=== PATIENT | male | born 1945 | race Caucasian/White ===

== ENCOUNTER 2018-08-15 08:14 | Day surgery (SDC) | payer MEDICARE, OTHER ==
[~2018-08-15] VITALS: Ht 190.5 cm; Wt 125.0 kg
[~2018-08-15 08:14] MED LIST: AMLO10 PO; ASPI81CH PO; ATOR20 PO; CARV6.25 PO; CHOL10002 PO; DABI150C PO; FENO145 PO; FISH1000 PO; HYDCHL25 PO; LISI20 PO; OMEP20ER PO
== END 2018-08-15 11:30 | disposition home or self-care (01) ==
LOC: MHTC 08:14
DX: I49.5 Sick sinus syndrome (principal); I44.2 Atrioventricular block, complete
CPT/HCPCS: 33228; 99152; 99153; C1785; J0690; J1644; J2250; J3010; J7030; J7040

== ENCOUNTER 2019-03-20 12:42 | Day surgery (SDC) | payer MEDICARE, OTHER ==
[~2019-03-20] VITALS: Ht 190.5 cm; Wt 266.6 kg
[2019-03-20] MEDS ORDERED: METF500 PO (13:27)
== END 2019-03-20 14:10 | disposition home or self-care (01) ==
LOC: ORSCSDS 12:42
PROVIDERS: Surgery
PROC: 0DB78ZX Excision of Stomach, Pylorus, Via Natural or Artificial Opening Endoscopic, Diagnostic (ICD-10-PCS; principal; 2019-03-20 14:15)
PROC: 0DB58ZX Excision of Esophagus, Via Natural or Artificial Opening Endoscopic, Diagnostic (ICD-10-PCS; principal; 2019-03-20 14:15)
PROC: 0DBP8ZX Excision of Rectum, Via Natural or Artificial Opening Endoscopic, Diagnostic (ICD-10-PCS; principal; 2019-03-20 14:15)
DX: Z12.11 Encounter for screening for malignant neoplasm of colon (principal); Z86.010 Personal history of colon polyps; K62.1 Rectal polyp; K57.30 Diverticulosis of large intestine without perforation or abscess without bleeding; K64.8 Other hemorrhoids; Z87.19 Personal history of other diseases of the digestive system; K22.70 Barrett's esophagus without dysplasia; K44.9 Diaphragmatic hernia without obstruction or gangrene; I10 Essential (primary) hypertension; I48.91 Unspecified atrial fibrillation; E78.5 Hyperlipidemia, unspecified; Z79.01 Long term (current) use of anticoagulants; Z95.0 Presence of cardiac pacemaker; Z79.899 Other long term (current) drug therapy; Z87.891 Personal history of nicotine dependence
CPT/HCPCS: 82947; 88305; J2704; J7120